=== PATIENT | female | born 1980 | race Caucasian/White ===

== ENCOUNTER → 2016-09-29 | Outpatient (CLI) | payer OTHER ==
[2016-10-03 16:04] LABS: HPV 16 Not Detected (NOTDET); HPV 18 Not Detected (NOTDET)
== END ==
LOC: MW.CHOBGYN 11:57
PROVIDERS: ATTEND Nurse Practitioner Women's Health
DX: Z12.4 Encounter for screening for malignant neoplasm of cervix (principal)
CPT/HCPCS: 87624; G0145

== ENCOUNTER → 2016-10-14 | Outpatient (CLI) | payer OTHER | LOC: MW.CHOBGYN 14:20 | PROVIDERS: ATTEND Obstetrics & Gynecology | DX: Z32.00 Encounter for pregnancy test, result unknown (principal); R39.9 Unspecified symptoms and signs involving the genitourinary system | CPT/HCPCS: 81001; 81025 ==

== ENCOUNTER 2017-10-05 09:15 | Day surgery (SDC) | payer OTHER, BC ==
[~2017-10-05 09:15] MED LIST: Sodium Chloride 0.9% 10 ML Syringe FLUSH PRN; Sodium Chloride 0.9% 2.5 ML Syringe FLUSH PRN
[2017-10-05] MEDS ORDERED: Lactated Ringers 1,000 ML IV SCH (10:00)
--- NOTE | 2017-10-05 10:17 | PCM.PREANE ---
Preanesthetic Assessment - Anesthesia/Transfusion/Family Hx Anesthesia History: Prior Anesthesia Without Reaction Family History of Anesthesia Reaction: No Transfusion History: No Prior Transfusion(s) - Review of Systems General: No Symptoms Pulmonary: No Symptoms Cardiovascular: No Symptoms Gastrointestinal: No Symptoms Neurological: No Symptoms Other: Reports: None - Physical Assessment NPO Status Date: 10/04/17 NPO Status Time: 22:30 O2 Sat by Pulse Oximetry: 99 Respiratory Rate: 16 Vital Signs: Last Vital Signs Temp 37.0 C 10/05/17 09:44 Pulse 71 10/05/17 09:44 Resp 16 10/05/17 09:44 BP 120/68 10/05/17 09:44 Pulse Ox 99 10/05/17 09:44 Height: 1.6 m Weight: 98.883 kg ASA Class: 2 Mental Status: Alert & Oriented x3 Airway Class: Mallampati = 1 Dentition: Reports: Normal Dentition ROM/Head Extension: Full Lungs: Clear to Auscultation, Normal Respiratory Effort Cardiovascular: Regular Rate, Regular Rhythm - Lab Values: Laboratory Last Values WBC 6.71 K/uL (4.0-11.0) 10/05/17 09:52 RBC 4.67 M/uL (4.30-5.90) 10/05/17 09:52 Hgb 14.3 g/dL (12.0-16.0) 10/05/17 09:52 Hct 41.9 % (36.0-46.0) 10/05/17 09:52 MCV 89.7 fL (80.0-98.0) 10/05/17 09:52 MCH 30.6 pg (27.0-32.0) 10/05/17 09:52 MCHC 34.1 g/dL (31.0-37.0) 10/05/17 09:52 RDW Std Deviation 42.5 fl (28.0-62.0) 10/05/17 09:52 RDW Coeff of Ascencion 13 % (11.0-15.0) 10/05/17 09:52 Plt Count 204 K/uL (150-400) 10/05/17 09:52 MPV 11.00 fL (7.40-12.00) 10/05/17 09:52 Nucleated RBC % 0.0 /100WBC 10/05/17 09:52 Nucleated RBCs # 0 K/uL 10/05/17 09:52 - Allergies Allergies/Adverse Reactions: Allergies Allergy/AdvReac Type Severity Reaction Status Date / Time doxycycline Allergy Mild Blisters Verified 09/30/17 11:53 amoxicillin Allergy Hives Verified 09/30/17 11:53 Penicillins Allergy Hives Verified 09/30/17 11:53 Sulfa (Sulfonamide Allergy Nausea and Verified 09/30/17 11:53 Antibiotics) Vomiting TDAP Allergy Anaphylactic Uncoded 09/30/17 11:53 Shock - Anesthesia Plan Pre-Op Medication Ordered: None - Acknowledgements Anesthesia Type Planned: General Anesthesia Pt an Appropriate Candidate for the Planned Anesthesia: Yes Alternatives and Risks of Anesthesia Discussed w Pt/Guardian: Yes Pt/Guardian Understands and Agrees with Anesthesia Plan: Yes PreAnesthesia Questionnaire Gastrointestinal History: Reports: Other (See Below) Other Gastrointestinal History: occasional heartburn, takes OTC Pepsid 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: , Spontaneous Neurological History: Reports: Other (See Below) Other Neuro History: hx of motion sickness Endocrine/Metabolic History: Reports: Obesity/BMI 30+ - Past Surgical History HEENT Surgical History: Reports: Adenoidectomy, Oral Surgery, Tonsillectomy Other HEENT Surgeries/Procedures: wisdom teeth Female Surgical History: Reports: Cervical Cryotherapy - SUBSTANCE USE Smoking Status *Q: Never Smoker Recreational Drug Use History: No - HOME MEDS Home Medications: Home Meds L.acidoph,Paracasei, B.lactis [Probiotic] 1 cap PO DAILY 09/30/17 [History] Imj647/FA/Omega3/Dha/Fish Oil [ Gummies] 2 tab PO DAILY 09/30/17 [ History] - CURRENT (IN HOUSE) MEDS Current Meds: Current Medications Lactated Ringer's (Ringers, Lactated) 1,000 mls @ 125 mls/hr IV ASDIRECTED STACEY Sodium Chloride (Saline Flush) 10 ml FLUSH ASDIRECTED PRN PRN Reason: Keep Vein Open Sodium Chloride (Saline Flush) 2.5 ml FLUSH ASDIRECTED PRN PRN Reason: Keep Vein Open
[2017-10-05] MEDS ORDERED: Propofol 200 MG/20 ML SDV ONE (11:07)
[2017-10-05] MEDS ORDERED: Ondansetron 4 MG/2 ML SDV ONE (11:07)
[2017-10-05] MEDS ORDERED: fentaNYL 100 MCG/2 ML SDV ONE (11:08)
[2017-10-05] MEDS ORDERED: Midazolam 1 MG/ML 2 ML SDV ONE (11:08)
[2017-10-05] MEDS ORDERED: Dexamethasone 4 MG/ML 5 ML MDV ONE (11:09)
[2017-10-05] MEDS ORDERED: Metoclopramide 10 MG/2 ML SDV ONE (11:27)
--- NOTE | 2017-10-05 12:23 | PCM.OPNOTE ---
- General Post-Op/Procedure Note Date of Surgery/Procedure: 10/05/17 Operative Procedure(s): Suction D&C Findings: Incomplete SAB Pre Op Diagnosis: Incomplete SAB Post-Op Diagnosis: Completed SAB Anesthesia Technique: Epidural Primary Surgeon: Lizz Bee Pathology: products of conception Fluid Replacement, Intraop: 700 EBL in mLs: 75 Complications: none known Condition: Good Free Text/Narrative:: Intake & Output 10/04/17 10/05/17 10/05/17 22:59 06:59 14:59 Intake Total 900 Balance 900 Dictation [id number]
--- NOTE | 2017-10-05 12:42 | PCM.POSTAN ---
POST ANESTHESIA ASSESSMENT - MENTAL STATUS Mental Status: Alert - VITAL SIGNS Pulse Rate: 63 SaO2: 96 Resp Rate: 16 Blood Pressure: 120/64 - RESPIRATORY Respiratory Status: Respiratory Rate WNL, Airway Patent, O2 Saturation Stable - CARDIOVASCULAR CV Status: Pulse Rate WNL, Blood Pressure Stable - GASTROINTESTINAL GI Status: No Symptoms - PAIN Pain Score: 0 - POST OP HYDRATION Hydration Status: Adequate & Stable (Progressing well. No problems noted.)
--- NOTE | 2017-10-05 13:22 | PCM48HPAN ---
Post Anesthesia Note - EVALUATION WITHIN 48HRS OF ANESTHETIC Vital Signs in Normal Range: Yes Patient Participated in Evaluation: Yes Respiratory Function Stable: Yes Airway Patent: Yes Cardiovascular Function Stable: Yes Hydration Status Stable: Yes Pain Control Satisfactory: Yes (No complaints of pain.) Nausea and Vomiting Control Satisfactory: Yes Mental Status Recovered: Yes Pulse Rate: 63 Resp Rate: 16 Blood Pressure: 120/64 - COMMENTS/OBSERVATIONS Free Text/Narrative:: Ready for discharge. No post problems.
--- NOTE | 2017-10-05 14:14 | OR ---
SURGEON: Lizz Bee M.D. DATE OF PROCEDURE: 10/05/2017 PREOPERATIVE DIAGNOSIS: Incomplete spontaneous . POSTOPERATIVE DIAGNOSIS: Completed spontaneous . ANESTHESIA: General endotracheal anesthesia. ESTIMATED BLOOD LOSS: 75 mL. FLUIDS: 750 mL crystalloid. FINDINGS: Products of conception. DISPOSITION: The patient to PACU, stable. SPECIMEN: Pathology. PROCEDURE IN DETAIL: Shakila is a 37-year-old female who presented for her new OB visit a little about a week ago, and found to have an 8-week demise. In the interval, while contemplating her options, she had opted for D and C, but wanted to wait until this week with being off work for spring. She did start bleeding over the weekend, and with followup yesterday, she had passed the fetus, but there was still a fair amount of vascular tissue within the lower uterine segment. The patient therefore given the option that there could still be retained products decided she would like to proceed with surgery still. The risks of procedure have been discussed with proper consent obtained. The patient was taken to the operating room where she underwent general endotracheal anesthesia, was placed in modified dorsal lithotomy position, prepped and draped in the usual sterile fashion. SCDs to the lower extremities. Bladder was drained. A time-out was performed. Speculum was introduced into the vagina. Cervix was visualized. Anterior lip of the cervix was grasped with an Allis clamp. The cervix was already easily dilated to 9 mm using an 8 mm curved curette. This was gently introduced into the uterine cavity to the fundus, and with suction in place, emptied the uterine cavity of all contents. Gentle sharp curettage was performed. The uterus was felt to be satisfactorily evacuated and off specimens to pathology. Hemostasis appeared evident. All instruments were removed from the vagina. Sponge and instrument counts correct x2. The patient will go to PACU in stable condition. BALBIR / PATRICK /[id number]
== END 2017-10-05 12:50 | disposition home or self-care (01) ==
LOC: MW.SDS 09:15 → MERGE 13:00
PROVIDERS: ATTEND Obstetrics & Gynecology
DX: O03.4 Incomplete spontaneous abortion without complication (principal); Z79.899 Other long term (current) drug therapy
CPT/HCPCS: 36415; 59812; 85027; 88305; J1100; J2250; J2405; J2765; J3010; 01965; J2704

== ENCOUNTER 2018-03-22 07:38 | Day surgery (SDC) | payer OTHER ==
[~2018-03-22 07:38] MED LIST changes: +Lidocaine 2% 5 ML SDV ONE; +Midazolam 1 MG/ML 2 ML SDV ONE; +Ondansetron 4 MG/2 ML SDV ONE; +Propofol 200 MG/20 ML SDV ONE; +fentaNYL 250 MCG/5 ML SDV ONE
--- NOTE | 2018-03-22 08:17 | PCM.PREANE ---
Preanesthetic Assessment - Anesthesia/Transfusion/Family Hx Anesthesia History: Prior Anesthesia Without Reaction Family History of Anesthesia Reaction: No Transfusion History: No Prior Transfusion(s) - Review of Systems General: No Symptoms Pulmonary: No Symptoms Cardiovascular: No Symptoms Gastrointestinal: No Symptoms Neurological: No Symptoms Other: Reports: None - Physical Assessment NPO Status Date: 03/21/18 Height: 1.59 m Weight: 97.069 kg ASA Class: 2 Mental Status: Alert & Oriented x3 Airway Class: Mallampati = 1 Dentition: Reports: Normal Dentition ROM/Head Extension: Full Lungs: Clear to Auscultation, Normal Respiratory Effort Cardiovascular: Regular Rate, Regular Rhythm - Allergies Allergies/Adverse Reactions: Allergies Allergy/AdvReac Type Severity Reaction Status Date / Time doxycycline Allergy Mild Blisters Verified 03/18/18 11:45 amoxicillin Allergy Hives Verified 03/18/18 11:45 latex Allergy rash from Verified 03/18/18 11:45 adhesive bandage Penicillins Allergy Hives Verified 03/18/18 11:45 Sulfa (Sulfonamide Allergy Nausea and Verified 03/18/18 11:45 Antibiotics) Vomiting TDAP Allergy Anaphylactic Uncoded 09/30/17 11:53 Shock - Anesthesia Plan Pre-Op Medication Ordered: None - Acknowledgements Anesthesia Type Planned: General Anesthesia Pt an Appropriate Candidate for the Planned Anesthesia: Yes Alternatives and Risks of Anesthesia Discussed w Pt/Guardian: Yes Pt/Guardian Understands and Agrees with Anesthesia Plan: Yes Additional Comments: PMH: missed ab at 8 weeks, hx of prior misscarriages PLAN: GA-mask or LMA PreAnesthesia Questionnaire HEENT History: Reports: None Gastrointestinal History: Reports: Other (See Below) Other Gastrointestinal History: occasional heartburn, takes OTC Pepsid Genitourinary History: Reports: UTI, Recurrent 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 Neurological History: Reports: Other (See Below) Other Neuro History: hx of motion sickness Endocrine/Metabolic History: Reports: Obesity/BMI 30+ - Past Surgical History Head Surgeries/Procedures: Reports: None HEENT Surgical History: Reports: Adenoidectomy, Oral Surgery, Tonsillectomy Other HEENT Surgeries/Procedures: wisdom teeth Female Surgical History: Reports: Cervical Cryotherapy, D&C, Other (See Below ) Other Female Surgeries/Procedures: colposcopy - SUBSTANCE USE Smoking Status *Q: Never Smoker Recreational Drug Use History: No - HOME MEDS Home Medications: Home Meds L.acidoph,Paracasei, B.lactis [Probiotic] 1 cap PO DAILY 09/30/17 [History] Qdk168/FA/Omega3/Dha/Fish Oil [ Gummies] 2 tab PO DAILY 09/30/17 [ History] Acetaminophen [Tylenol Extra Strength] 2 tab PO ASDIRECTED PRN 03/18/18 [History ] - CURRENT (IN HOUSE) MEDS Current Meds: Current Medications Sodium Chloride (Saline Flush) 10 ml FLUSH ASDIRECTED PRN PRN Reason: Keep Vein Open Sodium Chloride (Saline Flush) 2.5 ml FLUSH ASDIRECTED PRN PRN Reason: Keep Vein Open Discontinued Medications Fentanyl (Sublimaze) Confirm Administered Dose 250 mcg .ROUTE .STK-MED ONE Stop: 03/22/18 07:18 Lidocaine (Xylocaine-Mpf 2%) Confirm Administered Dose 5 ml .ROUTE .STK-MED ONE Stop: 03/22/18 07:18 Midazolam HCl (Versed 1 Mg/Ml) Confirm Administered Dose 2 mg .ROUTE .STK-MED ONE Stop: 03/22/18 07:18 Ondansetron HCl (Zofran) Confirm Administered Dose 4 mg .ROUTE .STK-MED ONE Stop: 03/22/18 07:18 Propofol (Diprivan 20 Ml) Confirm Administered Dose 200 mg .ROUTE .STK-MED ONE Stop: 03/22/18 07:18
[2018-03-22] MEDS ORDERED: Lactated Ringers 1,000 ML IV SCH (08:30)
[2018-03-22] MEDS ORDERED: fentaNYL 100 MCG/2 ML SDV IVPUSH PRN (09:11)
--- NOTE | 2018-03-22 09:37 | PCM.OPNOTE ---
- General Post-Op/Procedure Note Date of Surgery/Procedure: 03/22/18 Operative Procedure(s): Suction D&C Findings: Products of conception Pre Op Diagnosis: 8 week missed AB Post-Op Diagnosis: 8 week missed AB Anesthesia Technique: General LMA Primary Surgeon: Lizz Bee Anesthesia Provider: Herman Quiles Salt Cutter: Melly Miranda Pathology: Products of conception Fluid Replacement, Intraop: 1,000 EBL in mLs: 100 Complications: None known Condition: Good Free Text/Narrative:: Dictation [id number]
--- NOTE | 2018-03-22 10:01 | PCM.POSTAN ---
POST ANESTHESIA ASSESSMENT - MENTAL STATUS Mental Status: Alert - VITAL SIGNS Pulse Rate: 70 SaO2: 98 Resp Rate: 12 Blood Pressure: 106/54 Temperature: 96.4 C - RESPIRATORY Respiratory Status: Respiratory Rate WNL - CARDIOVASCULAR CV Status: Pulse Rate WNL - GASTROINTESTINAL GI Status: No Symptoms - PAIN Pain Score: 3 (Crampy ache) - POST OP HYDRATION Hydration Status: Adequate & Stable (Doing well. Ready for Phase 2.)
--- NOTE | 2018-03-22 11:26 | OR ---
SURGEON: Lizz Bee M.D. DATE OF PROCEDURE: 03/22/2018 PREOPERATIVE DIAGNOSIS: Eight week demise, missed . POSTOPERATIVE DIAGNOSIS: Eight week demise, missed . PROCEDURE: Suction with dilation and curettage. SEO CONSULTANT: ELIAZAR Paul. ANESTHESIA: General LMA. FLUIDS: 1000 mL crystalloid. ESTIMATED BLOOD LOSS: 100 mL. COMPLICATIONS: None. FINDINGS: Products of conception. The uterus sounding to approximately 9 cm. DISPOSITION: The patient to PACU stable. SPECIMEN: To pathology. PROCEDURE IN DETAIL: Shakila is a 37-year-old female who was diagnosed with an 8 week demise. She has opted to proceed with surgical intervention from a D and C. Risks of the procedure have been discussed and proper consent obtained. The patient was taken to the operating room where she underwent general LMA, was placed in modified dorsal lithotomy position and was prepped and draped in the usual sterile fashion. The bladder was drained. Time-out was performed. A speculum was introduced into the vagina. The posterior lip of cervix was grasped with an Allis clamp. The cervix was gently dilated to 9 mm, it dilated fairly easily. Using a 9 mm curved suction curette, this was gently introduced to the fundus with suction applied. The uterine cavity was cleared of all products of conception and debris. The specimen will be sent to pathology. The patient is asking for chromosomal analysis. Gentle sharp curettage was now performed. The uterus felt to be adequately evacuated. Hemostasis appeared evident. All instruments were removed from the vagina. Sponge count, instrument count was correct x2. The patient has tolerated the procedure well. Hemostasis evident. Specimen to pathology. BALBIR / PATRICK /[id number]
--- NOTE | 2018-03-22 12:22 | PCM48HPAN ---
Post Anesthesia Note - EVALUATION WITHIN 48HRS OF ANESTHETIC Vital Signs in Normal Range: Yes Patient Participated in Evaluation: Yes Respiratory Function Stable: Yes Airway Patent: Yes Cardiovascular Function Stable: Yes Hydration Status Stable: Yes Pain Control Satisfactory: Yes Nausea and Vomiting Control Satisfactory: Yes Mental Status Recovered: Yes Pulse Rate: 70 Resp Rate: 14 Temperature: 96.4 C Blood Pressure: 106/54
== END 2018-03-22 11:05 | disposition home or self-care (01) ==
LOC: MW.SDS 07:38
PROVIDERS: ATTEND Obstetrics & Gynecology
DX: O02.1 Missed abortion (principal); O43.811 Placental infarction, first trimester; E66.9 Obesity, unspecified; Z68.38 Body mass index [BMI] 38.0-38.9, adult; Z88.0 Allergy status to penicillin; Z88.1 Allergy status to other antibiotic agents; Z88.7 Allergy status to serum and vaccine; Z88.2 Allergy status to sulfonamides; Z91.040 Latex allergy status
CPT/HCPCS: 36415; 59820; 85027; 88233; 88305; J2250; J2405; J2704; J3010; J7120

== ENCOUNTER 2025-01-03 13:25 | Emergency (ER) | payer BC, OTHER ==
[2025-01-03] MEDS ORDERED: Nitroglycerin 0.4 MG Tab.SL SL PRN (13:58)
[2025-01-03] MEDS: Aspirin 81 MG Tab.Chew PO ONE (14:10)
[2025-01-03] MEDS: Sodium Chloride 0.9% 1,000 ML IV ONE (14:10)
[2025-01-03] MEDS: Alum Hydrox/Mag Hydrox/Simeth 15 ML, Lidocaine 2% 5 ML PO ONE (14:11)
[2025-01-03 14:13] LABS: APPEARANCE,URINE CLEAR; BASOPHILS ABSOLUTE AUTO 0.07 K/uL (0.00-0.20); BASOPHILS PERCENT AUTO 0.8 % (0.0-1.0); BILIRUBIN,URINE NEGATIVE (NEGATIVE); COLOR,URINE YELLOW; EOSINOPHILS ABSOLUTE AUTO 0.11 K/uL (0.00-0.45); EOSINOPHILS PERCENT AUTO 1.3 % (0.0-6.0); GLUCOSE,URINE NEGATIVE (NEGATIVE); HEMATOCRIT 40.7 % (37.0-47.0); HEMOGLOBIN 13.8 g/dL (12.0-16.0); IMMATURE GRAN ABSOLUTE AUTO 0.01 K/uL (0.00-0.05); IMMATURE GRAN PERCENT AUTO 0.1 % (0.0-0.4); KETONES,URINE NEGATIVE (NEGATIVE); LEUKOCYTE ESTERASE,URINE NEGATIVE (NEGATIVE); LYMPHOCYTES ABSOLUTE AUTO 2.39 K/uL (1.00-4.80); MEAN CORPUSCULAR HEMOGLOBIN 30.3 pg (28.0-32.0); MEAN CORPUSCULAR HGB CONC 33.9 g/dL (32.0-36.0); MEAN CORPUSCULAR VOLUME 89.3 fL (83.0-99.0); MEAN PLATELET VOLUME 10.8 fL (9.4-12.3); MONOCYTES ABSOLUTE AUTO 0.59 K/uL (0.00-0.80); MONOCYTES PERCENT AUTO 6.9 % (0.0-8.0); NEUTROPHILS ABSOLUTE AUTO 5.38 K/uL (1.80-7.70); NEUTROPHILS PERCENT AUTO 62.9 % (41.0-71.0); NITRITE,URINE NEGATIVE (NEGATIVE); OCCULT BLOOD,URINE MODERATE (NEGATIVE); PLATELET COUNT,PLT 232 K/uL (150-400); PROTEIN,URINE NEGATIVE (NEGATIVE); RED BLOOD CELL COUNT 4.56 M/uL (4.10-5.30); UROBILINOGEN,URINE 0.2 EU/dL (<2.0); WHITE BLOOD CELL COUNT,WBC 8.55 K/uL (3.9-11.3)
[2025-01-03 14:22] LABS: INR 0.96 (0.86-1.11); PTT,PARTIAL THROMBOPLSTIN TIME 26.2 SEC (23.9-30.7)
[2025-01-03 14:24] LABS: BACTERIA,URINE RARE (NEGATIVE); SQUAMOUS EPITHELIAL CELLS,UR OCCASIONAL; WBC,URINE 0-2 (0-5/HPF)
[2025-01-03 14:25] LABS: MUCUS,URINE LIGHT (NONE-MOD)
[2025-01-03 14:48] LABS: ALANINE AMINOTRANSFERASE,ALT 57 IU/L (14-63); ALBUMIN 3.8 g/dL (3.4-5.0); ALKALINE PHOSPHATASE 104 U/L (46-116); ASPARTATE AMNIOTRANSFERASE,AST 30 IU/L (15-37); BILIRUBIN TOTAL 0.2 mg/dL (0.2-1.0); BLOOD UREA NITROGEN,BUN 23 mg/dL (7.0-18.0); CALCIUM 9.1 mg/dL (8.5-10.1); CARBON DIOXIDE,CO2 27.6 mmol/L (21.0-32.0); CHLORIDE,CL 99 mmol/L (98-107); EST CRCL DRUG DOSING (CG) 56.19 mL/min; GLUCOSE RANDOM 93 mg/dL (74-106); LIPASE 62 U/L (16-77); POTASSIUM,K 3.6 mmol/L (3.5-5.1); PROTEIN TOTAL,TP 7.5 g/dL (6.4-8.2); SODIUM,NA 135 mmol/L (136-145)
[2025-01-03 14:49] LABS: ESTIMATED GFR 71 mL/min (>60)
== END 2025-01-03 17:41 | disposition home or self-care (01) ==
LOC: MW.ED 13:25
DX: R07.2 Precordial pain (principal); Z88.0 Allergy status to penicillin; Z88.2 Allergy status to sulfonamides; Z88.8 Allergy status to other drugs, medicaments and biological substances; Z88.7 Allergy status to serum and vaccine; Z79.890 Hormone replacement therapy; Z79.899 Other long term (current) drug therapy; Z75.3 Unavailability and inaccessibility of health-care facilities
CPT/HCPCS: 36415; 71045; 80053; 81001; 83690; 83735; 84484; 85025; 85610; 85730; 93005; 96360; 99285; A9270; J7030; 93010; 99284